=== PATIENT | female | born 2000 | race Caucasian/White ===

== ENCOUNTER → 2018-04-15 | Outpatient (CLI) | payer OTHER | LOC: M SMT 15:27 | DX: Z13.79 Encounter for other screening for genetic and chromosomal anomalies (principal) ==

== ENCOUNTER 2018-09-25 07:40 | Outpatient (CLI) | payer OTHER ==
[2018-09-25 10:18] LABS: CHLAMYDIA DNA AMPLIFICATION NEGATIVE (NEGATIVE); GC DNA AMPLIFICATION NEGATIVE (NEGATIVE)
== END 2018-09-25 09:45 | disposition home or self-care (01) ==
LOC: M LDO 07:40
DX: O47.9 False labor, unspecified (principal); Z3A.33 33 weeks gestation of pregnancy; O99.343 Other mental disorders complicating pregnancy, third trimester; F43.10 Post-traumatic stress disorder, unspecified; F41.9 Anxiety disorder, unspecified; F20.9 Schizophrenia, unspecified; O99.333 Smoking (tobacco) complicating pregnancy, third trimester; F17.210 Nicotine dependence, cigarettes, uncomplicated; Z14.1 Cystic fibrosis carrier; Z87.09 Personal history of other diseases of the respiratory system
CPT/HCPCS: 59025

== ENCOUNTER → 2018-10-08 | Outpatient (REF) | payer OTHER | LOC: M LAB REF 17:02 | DX: Z36.89 Encounter for other specified antenatal screening (principal) | CPT/HCPCS: 87081 ==

== ENCOUNTER → 2018-10-13 | Outpatient (CLI) | payer OTHER ==
[2018-10-13 18:36] LABS: HEMATOCRIT 34.2 % (36.0-47.0); MEAN CORPUSCULAR HEMOGLOBIN 29.6 pg (27.0-33.0); MEAN CORPUSCULAR HGB CONC 32.2 g/dl (32.0-36.5); MEAN CORPUSCULAR VOLUME 92.2 fl (80.0-96.0); PLATELET COUNT, AUTOMATED 292 10^3/uL (150-450); RED BLOOD COUNT 3.71 10^6/uL (4.00-5.40); RED CELL DISTRIBUTION WIDTH 13.3 % (11.5-14.5); WHITE BLOOD COUNT 14.2 10^3/uL (4.0-10.0)
[2018-10-13 18:36] LABS: GLUCOSE CHALLENGE TEST 1 HOUR 150 MG/DL (LESS THAN 140)
== END ==
LOC: M SMT 14:33
DX: Z36.89 Encounter for other specified antenatal screening (principal)
CPT/HCPCS: 82950

== ENCOUNTER 2018-11-13 19:44 | Inpatient (IN) | payer OTHER ==
[~2018-11-13] VITALS: Ht 154.9 cm; Wt 65.1 kg
[2018-11-13 20:15] VITALS: BP 128/67
[2018-11-13] MEDS ORDERED: miSOPROStol 50 MCG 1/2 TAB (S0191) PO ONE (21:30)
[2018-11-13 21:41] LABS: HEMOGLOBIN 12.1 g/dl (12.0-15.5); MEAN CORPUSCULAR HEMOGLOBIN 28.9 pg (27.0-33.0); MEAN CORPUSCULAR HGB CONC 32.7 g/dl (32.0-36.5); MEAN CORPUSCULAR VOLUME 88.5 fl (80.0-96.0); PLATELET COUNT, AUTOMATED 333 10^3/uL (150-450); RED BLOOD COUNT 4.18 10^6/uL (4.00-5.40); WHITE BLOOD COUNT 16.6 10^3/uL (4.0-10.0)
[2018-11-13 21:42] VITALS: BP 103/58
[2018-11-14] VITALS (49 sets, daily range): BP systolic 83–143; BP diastolic 46–103
[2018-11-14] MEDS: miSOPROStol 50 MCG 1/2 TAB (S0191) PO SCH ×2 (02:14→06:00)
--- NOTE | 2018-11-14 08:17 | HPE ---
DATE OF ADMISSION: 11/13/2018 REASON FOR ADMISSION: Induction of labor. HISTORY OF PRESENT ILLNESS: Ms. Lobo is a 17-year-old 1 who presents at 40 weeks 6 days estimated gestational age by first trimester ultrasound for induction of labor. Her course has been unremarkable. She initiated care in her first trimester. It has been appropriate throughout. PAST MEDICAL HISTORY: 1. Hearing impaired. 2. Partially blind. 3. Anxiety and depression. 4. Post-traumatic stress disorder (PTSD). 5. Panic disorder. 6. Asthma. 7. Endometriosis. PAST SURGICAL HISTORY: None. OBSTETRICAL HISTORY: She is a 1. MEDICATIONS: Includes vitamins. ALLERGIES: CEPHAZOLIN. SOCIAL HISTORY: Denies any alcohol, tobacco or drug use during . PHYSICAL EXAMINATION: Her vital signs are stable. She is afebrile. She has a category one heart tracing with irregular contractions on tocometer. General appearance: She is well appearing, in no acute distress. Lungs are clear to auscultation bilaterally. Cardiovascular: Heart regular rate and rhythm. Abdomen is gravid, nontender. Estimated weight 3300 grams. Cervical exam: She was 2 cm dilated, 75% effaced. -2 station. LABS: Blood type is A positive. Antibody screen negative. Rubella is immune. RPR is nonreactive. Hepatitis surface antigen is negative. HIV is negative. Hep C is nonreactive. Chlamydia and gonorrhea screens negative. She had an elevated 1 hour Glucola. She has not completed a 3 hour glucose tolerance test during this . Her Group B Streptococcus (GBS) status is negative. ASSESSMENT: 1. Ms. Lobo is a 17-year-old 1 at 40 weeks 6 days estimated gestational age. 2. Reassuring status. PLAN: 1. Admit to labor and delivery. CBC, RPR, type and screen. 2. Patient thoroughly counseled in regards to induction of labor. I discussed medication and procedures to be performed in labor and delivery. I have also discussed emergency surgery, blood produces, anesthesia. She desires to proceed to admission. 3. Will initiate her induction with oral misoprostol.
[2018-11-14] MEDS ORDERED: OXYTOCIN DRIP 30 UNITS in APPROPRIATE DILUENT 1 EA IV SCH (09:45)
[2018-11-14] MEDS: LR 1,000 ML IV SCH ×3 (09:55→19:04)
--- NOTE | 2018-11-14 16:46 | NUR ---
L&D Note requesting pain meds Cat 1 tracing currently. vss AF gen: well apearing cx: /-2, AROM clear A/P: IOL at 41wks reassuring status -continue with pitocin IOL -stadol and phenergan Erlinda Hall MD
[2018-11-14] MEDS ORDERED: BUTORPHANOL 2 MG/ML INJ (J0595) IV ONE (17:00)
[2018-11-14] MEDS ORDERED: PROMETHAZINE INJ 25 MG/ML VIAL (J2550) IV PRN (17:00)
[2018-11-14] MEDS ORDERED: FENTANYL 2MCG/ML ROPIVACAINE 0.2% IN 0.9% NACL 100ML IVBAG As Ordered ONE (19:43)
[2018-11-14] MEDS ORDERED: diphenhydrAMINE INJ 50MG/ML VIAL (J1200) IV PRN (21:00)
[2018-11-14] MEDS ORDERED: EPIDURAL COMMENT XX SCH (21:00)
[2018-11-14] MEDS ORDERED: ONDANSETRON 4MG/2ML VIAL (J2405) IV PRN (21:00)
[2018-11-14] MEDS ORDERED: REFRIGERATOR IV KEYS XX PRN (21:00)
[2018-11-14] MEDS ORDERED: EPIDURAL/PCA KEYS XX PRN (21:00)
[2018-11-14] MEDS ORDERED: FENTANYL/ROPIVACAINE/NACL BAG 100 ML EPIDURAL SCH (21:00)
[2018-11-14] MEDS ORDERED: NALOXONE INJ 0.4 MG/1 ML VIAL (J2310) IV PRN (21:00)
[2018-11-14] MEDS ORDERED: LACTATED RINGER'S 1000 ML IV PRN (21:00)
[2018-11-14] MEDS ORDERED: ePHEDrine SULFATE 25 MG/5 ML(5MG/ML) SYRINGE IV PRN (21:00)
[2018-11-15] VITALS (18 sets, daily range): BP systolic 101–126; BP diastolic 51–65
--- NOTE | 2018-11-15 07:19 | DN ---
DATE OF DELIVERY: 11/15/2018 TIME OF : 023 GENDER: Female. APGARS: 9 and 10. WEIGHT 3240 grams, 7 pounds 2 ounces. LACERATIONS: Bilateral labial. ANESTHESIA: Epidural. ESTIMATED BLOOD LOSS: 300 mL. COUNTS: 5 laparotomy sponges accounted for prior to and after delivery. Once sharp removed from the delivery field. DELIVERY NOTE: On the 11/15/2018 at 0234, Ms Lobo, a 17-year-old, 1, now para 1, had a spontaneous vaginal delivery of a live born female infant, Apgars 9 and 10, weight 3240 grams 7 pounds 2 ounces. Head was delivered occiput anterior (OA) over intact perineum. There was nuchal cord, which was mainly reduced followed by delivery of shoulders and corpus. was handed to the Mom with good cry. The cord was then clamped times two and was cut by the father of the baby under my direction. Cord blood was then obtained. Placenta was drained and delivered grossly intact. A pre-mixed bag of 500 mL with normal saline with 30 units of pitocin was bolused along with uterine massage. The uterus was firmed. On inspection, there were bilateral labial lacerations, which were repaired with #3-0 Vicryl Rapid. On re-inspection of the cervix, vagina and perineum was grossly intact and hemostatic. Mom and baby recovering in stable condition. The couple has decided to name their daughter Ellie Murguia.
[2018-11-15] MEDS ORDERED: OXYTOCIN DRIP 30 UNITS in APPROPRIATE DILUENT 1 EA IV SCH (07:42)
[2018-11-15] MEDS ORDERED: MOM 30ML SUSPENSION UDC PO PRN (07:45)
[2018-11-15] MEDS ORDERED: RHOGAM 300 MCG (1500 IU) INJ (J2790) IM SCH (07:45)
[2018-11-15] MEDS ORDERED: ACETAMINOPHEN 500 MG TAB PO PRN (07:45)
[2018-11-15] MEDS ORDERED: MEASLES,MUMPS,RUBELLA VACCINE INJ (MMR-II) (90707) SC SCH (07:45)
[2018-11-15] MEDS ORDERED: DIBUCAINE 1% OINTMENT 30GM TOP PRN (07:45)
[2018-11-15] MEDS ORDERED: METHYLERGONOVINE MALEATE 0.2 MG TAB PO PRN (07:45)
[2018-11-15] MEDS ORDERED: DOCUSATE SODIUM 100 MG CAP PO PRN (07:45)
[2018-11-15] MEDS: PRENATAL VITAMINS CHEWABLE TABLET PO SCH (08:08)
[2018-11-15] MEDS: IBUPROFEN 800 MG TAB PO PRN (18:04)
[2018-11-15] MEDS ORDERED: ADACEL/BOOSTRIX VACCINE (DIPHTH/PERTUSS/ACELL/TETANUS)0.5ML SYR (90715) IM ONE (18:45)
[2018-11-16 05:52] VITALS: BP 102/65
[2018-11-16] MEDS: PRENATAL VITAMINS CHEWABLE TABLET PO SCH (08:29)
[2018-11-16] MEDS: IBUPROFEN 800 MG TAB PO PRN ×2 (08:30→19:58)
[2018-11-16 18:09] VITALS: BP 120/61
[2018-11-17 06:00] VITALS: BP 117/59
--- NOTE | 2018-11-17 06:06 | NUR ---
Day 2 Status post , uncomplicated Subjective Pain is well controlled. Lochia decreasing and minimal. Voiding spontaneously. Tolerating a regular diet. Ambulating without any assistance. Denies any subjective fever/chills/nausea/vomiting/headache/visual changes/shortness of breath/chest pain. Objective Vitals: Normotensive, normal heart rate, afebrile, adequate urine output. Heart: regular, rate, and rhythm. no murmurs/gallops/rubs Lungs: clear to auscultation bilaterally, no wheezes/crackles/rales/ronchi Abd: soft, nontender, nondistended, uterine fundus is 2cm below umbilicus and firm Ext: no significant edema, nontender, negative David's bilaterally. Assessment/Plan: day 2. Recovering well. Hemodynamically stable, afebrile, good pain control. -Routine care -Discharge to home today. -Routine infectious, fever, pain, and bleeding precautions reviewed Licha Rodriguez.Nikolas., F.A.C.O.G.
[2018-11-17] MEDS: IBUPROFEN 800 MG TAB PO PRN (06:16)
[2018-11-17] MEDS: PRENATAL VITAMINS CHEWABLE TABLET PO SCH (09:50)
[2018-11-17] MEDS ORDERED: IBUP-1114 PO (11:18)
[2018-11-17] MEDS ORDERED: PRENTAB9 PO (11:18)
[2018-11-17] MEDS ORDERED: MAPA500T2 PO (11:18)
== END 2018-11-17 12:35 | disposition home or self-care (01) | DRG 560 ==
LOC: M LDI 19:44 → M OBS 11-15 04:58
PROVIDERS: ADMIT Obstetrics & Gynecology; ATTEND Obstetrics & Gynecology
PROC: 3E0DXGC Introduction of Other Therapeutic Substance into Mouth and Pharynx, External Approach (ICD-10-PCS; 2018-11-13)
PROC: 10E0XZZ Delivery of Products of Conception, External Approach (ICD-10-PCS; principal; 2018-11-15)
PROC: 0HQ9XZZ Repair Perineum Skin, External Approach (ICD-10-PCS; 2018-11-15)
DX: O48.0 Post-term pregnancy (principal); O69.82X0 Labor and delivery complicated by other cord entanglement, without compression, not applicable or unspecified; Z37.0 Single live birth; Z3A.40 40 weeks gestation of pregnancy; O70.0 First degree perineal laceration during delivery